=== PATIENT | female | born 1975 ===

== ENCOUNTER 2022-03-06 10:05 | Outpatient (CLI) | payer BC, SELFPAY ==
--- NOTE | 2022-03-06 06:00 | DI.RAD_ITS ---
Exam(s) XR PAIN CLINIC THORACIC SP 2V EXAM: XR PAIN CLINIC THORACIC SP 2V CLINICAL HISTORY: Dx: Intercostal neuralgia TECHNIQUE: 2D and realtime digital imaging was performed. CONTRAST MATERIAL: Refer to procedure report. COMPARISON: No exams were available for comparison FINDINGS: Fluoroscopy was provided for Dr. Grider during the performance of a left thoracic nerve block. Please refer to the procedure report for complete details. Ka,r=18.55 mGy IMPRESSION:
[2022-03-06 10:16] VITALS: BP 106/73; PULSE 77; RESP 20; TEMP 36.6; O2SAT 96
--- NOTE | 2022-03-06 10:54 | PDOC.PAIN ---
Pain Clinic Procedure Note Procedure Note Procedure Note: Left 10th, 11th, and 12th Intercostal Nerve Blocks Carito Velez has been referred to the [facility] for left-sided intercostal nerve blocks. COMMENTS: I previously evaluated her in the office on 01/30/22. Pre-procedure pain VAS 5/10. Dx: Intercostal neuralgia Patient was interviewed and the medical record reviewed. There were no medical, pharmacologic, radiographic or other structural contraindications to attempting fluoroscopically guided local anesthetic intercostal nerve blocks. Risks and expected side effects as well as potential benefit of the procedure were reviewed and voiced concerns addressed. The printed consent form was signed and witnessed. Standard time-out procedure was performed. Patient was placed in the prone position on the fluoroscopy table and automated blood pressure cuff and pulse oximeter applied. The skin entry points for approaching the anatomic target points of the 10th, 11th and 12th intercostal nerves were identified with fluoroscopy and marked. Following thorough Chlorhexadine preparation of the skin and draping, a 25 gauge 3.5 spinal needle was placed under fluoroscopic guidance down on to the rib and then the needle was slowly walked down and off of the rib.Position was confirmed in A/P, oblique and lateral views and with 0.25ml of omnipaque 240 at each spot. At this point I injected 1/3 cc of Depomedrol (40 mg/cc) and 3 cc of 2% Lidocaine. The needles were removed without difficulty. She had no distress during or after the procedure. Vital signs were stable throughout the procedure and were as recorded in the docflowsheet by the nursing staff. Follow up plans and appointments were discussed and was instructed to keep careful note of how the usual pain was modified by these injections. Specifically was asked to keep a pain diary for the next 24 hours using a numeric pain scale of 0-10 and report these results at the follow-up visit. Post procedure instruction was given as documented in the nursing documentation and having met discharge criteria. Patient was discharged from the [facility]. COMMENTS: Post-procedure pain VAS was 2/10. Pancho Grider DO, MPH [facility] CC: Rahel Goss
[2022-03-06] MEDS: Omnipaque 240 MG/ML 50 ML BTL IJ (11:10)
[2022-03-06] MEDS: Lidocaine 2% Pres-Free 5 ML VIAL IJ (11:12)
[2022-03-06] MEDS: methylPREDNISolone ACETATE 40 MG/ML VIAL IJ (11:12)
[2022-03-06 11:13] VITALS: BP 115/79; PULSE 87; RESP 14; O2SAT 99
== END 2022-03-06 10:06 | disposition home or self-care (01) ==
LOC: PC 10:05
PROVIDERS: PCP Internal Medicine; Visit Provider Preventive Medicine Occupational Medicine
DX: G58.8 Other specified mononeuropathies (principal)
CPT/HCPCS: 64450; 72070; J1030; Q9967